=== PATIENT | male | born 1990 | race Caucasian/White ===

== ENCOUNTER 2017-12-06 14:06 | Emergency (ER) | payer SELFPAY ==
[2017-12-06 14:13] VITALS: BP 216/191; PULSE 105; RESP 18; TEMP 97.5; O2SAT 94
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
== END 2017-12-06 15:06 | disposition home or self-care (01) ==
DX: S69.91XA Unspecified injury of right wrist, hand and finger(s), initial encounter (principal); F17.200 Nicotine dependence, unspecified, uncomplicated; W00.0XXA Fall on same level due to ice and snow, initial encounter; Y93.55 Activity, bike riding
CPT/HCPCS: L3807